=== PATIENT | male | born 1995 | race Caucasian/White ===

== ENCOUNTER → 2021-03-20 | Outpatient (CLI) | payer BC ==
--- NOTE | 2021-03-20 15:11 | US ---
EXAMINATION TYPE: US groin RT DATE OF EXAM: 03/20/2021 COMPARISON: NONE CLINICAL HISTORY: 25-year-old male R10.2 PELVIC AND PERINEAL PAIN. Patient complains of right groin p ain and possibly feels a lump for the past 3 weeks. Patient states having COVID 2-3 months ago. TECHNIQUE AND FINDINGS: COMMUNICATION TECHNICIAN NOTES: Scanned area of pain/lump on the right infrarenal region and noted two areas that appear to represent lymph nodes. Areas measure (1): 2.9 x 0.6 x 1.1 cm and (2): 2.8 x 0.6 x 1.2 cm. No evidence of right inguinal hernia seen. IMPRESSION: 2 borderline sized but nonenlarged right inguinal lymph nodes at the site of patient's pain measuring up to 1.2 cm short axis. Long axis dimension of nearly 3 cm. These are likely reactive/post inflamma tory and should be followed clinically. If any enlargement is noted, the area can be rescanned.
== END | disposition home or self-care (01) ==
LOC: RADUSWWP 12:59
PROVIDERS: ATTEND Family Medicine
DX: R10.2 Pelvic and perineal pain (principal)

== ENCOUNTER 2021-12-19 17:10 | Emergency (ER) | payer BC, OTHER ==
--- NOTE | 2021-12-19 18:54 | XR ---
EXAMINATION TYPE: XR ankle complete LT DATE OF EXAM: 12/19/2021 6:15 PM INDICATION: Patient age:Male; 26 years old; Reason for study: injury, pain laterally with palpation. COMPARISON: None TECHNIQUE: The left ankle is imaged in frontal, lateral and oblique projections. FINDINGS: There is no evidence of acute osseous pathology. Remote injury to the left ankle soft tissues noted w ell-corticated osseous fragment just off the distal aspect of the fibula. The joint spaces are well-p reserved without evidence of subluxation or dislocation. Kager's fat pad is intact. Mild soft tissue swelling around the ankle. No radiopaque foreign bodies are identified. IMPRESSION: 1. No evidence of acute fracture. 2. Subcutaneous swelling around the ankle likely secondary to underlying soft tissue injury.
--- NOTE | 2021-12-19 19:22 | ED ---
Lower Extremity Injury HPI - General Chief Complaint: Extremity Injury, Lower Stated Complaint: [facility]-left ankle injury Time Seen by Provider: 12/19/21 17:54 Source: patient Mode of arrival: ambulatory Limitations: no limitations - History of Present Illness Initial Comments: Patient is a 26-year-old male presenting evaluation of left ankle injury. Patient jumped off a platform during training approximately 2 feet and rolled his left ankle outward. Patient states it initially did not cause pain until about 4 hours later. The injury occurred 4 days ago. Patient has ankle swelling therefore he was ordered to have it evaluated. States he has not taken any pain medication sense day of injury. Has been walking on it without limitation. Does state it is tender to the touch on the outside and inside. Denies numbness and tingling. Denies other injuries. - Related Data Previous Rx's Medication Instructions Recorded Ibuprofen [Motrin] 800 mg PO Q6HR PRN #30 tab 12/19/21 Allergies Allergy/AdvReac Type Severity Reaction Status Date / Time No Known Allergies Allergy Verified 12/19/21 17:52 Review of Systems ROS Statement: Those systems with pertinent positive or pertinent negative responses have been documented in the HPI. ROS Other: All systems not noted in ROS Statement are negative. Past Medical History Past Medical History: No Reported History History of Any Multi-Drug Resistant Organisms: None Reported Past Surgical History: No Surgical Hx Reported Past Psychological History: No Psychological Hx Reported Smoking Status: Never smoker Past Alcohol Use History: None Reported Past Drug Use History: None Reported General Exam Limitations: no limitations General appearance: alert, in no apparent distress Head exam: Present: atraumatic, normocephalic, normal inspection Respiratory exam: Present: normal lung sounds bilaterally. Absent: respiratory distress, wheezes, rales, rhonchi, stridor Cardiovascular Exam: Present: regular rate, normal rhythm, normal heart sounds. Absent: systolic murmur, diastolic murmur, rubs, gallop, clicks Extremities exam: Present: other Left Lower Leg exam: Present: normal inspection, full ROM. Absent: tenderness, swelling Ankle exam: Present: full ROM, tenderness (laterally and to a lesser extent, medially ), swelling (Laterally, to a lesser extent, medially). Absent: normal inspection, abrasion, laceration, ecchymosis, deformity, crepitus, dislocation, erythema, anterior draw sign Foot/Toe exam: Present: normal inspection, full ROM. Absent: tenderness, swelling Neurovascular tendon exam: Present: no vascular compromise Gait: observed and normal Course Vital Signs 12/19/21 12/19/21 17:50 19:32 Temperature 98.4 F 98.9 F Pulse Rate 82 72 Respiratory 20 16 Rate Blood Pressure 120/66 127/94 O2 Sat by Pulse 97 96 Oximetry Medical Decision Making - Medical Decision Making This is a 26-year-old male presenting for evaluation of left ankle injury. Based on physical exam and presentation I do suspect this is a grade 1 ankle sprain. Left ankle x-ray shows no evidence of acute fracture and the subcutaneous swelling around the ankle likely secondary to underlying soft tissue injury Results discussed with patient. Ankle placed in ankle stirrup splint. Crutches not necessary. RICE patient provided in detail. Patient to bear weight as tolerated. Will send him home with Motrin for swelling and any pain.He will follow-up with repair specialist in 1 week if symptoms do not improve. Dr. Mayorga is my attending. Disposition Clinical Impression: Left ankle sprain Disposition: HOME SELF-CARE Condition: Good Instructions (If sedation given, give patient instructions): Ankle Sprain (ED) Additional Instructions: You likely have a mild ankle sprain. Please rest, ice, and elevate the injury. Take Motrin as needed for swelling and any pain. Bear weight as tolerated. Please follow-up with repair specialist in 1 week if symptoms do not improve. Return to the emergency department if you experience new, concerning, or worsening symptoms. Prescriptions: Ibuprofen [Motrin] 800 mg PO Q6HR PRN #30 tab PRN Reason: Pain Is patient prescribed a controlled substance at d/c from ED?: No Referrals: [facility],Clinic [Primary Care Provider] - 1-2 days Anuj Ron PAC [PHYSICIAN EXPLOSIVE OPERATOR [facility]] - 1-2 days Time of Disposition: 19:22
[2021-12-19 19:34] VITALS: BP 127/94; PULSE 72; RESP 16; TEMP 98.9
== END 2021-12-19 19:33 | disposition home or self-care (01) ==
LOC: EC 17:10
DX: S93.402A Sprain of unspecified ligament of left ankle, initial encounter (principal); W17.89XA Other fall from one level to another, initial encounter
CPT/HCPCS: 99283